=== PATIENT | female | born 1990 | race Caucasian/White ===

== ENCOUNTER 2022-06-27 09:32 | Outpatient (CLI) | payer OTHER | END 2022-06-27 09:58 | disposition home or self-care (01) | LOC: EDBD 09:32 → NST 09:32 | PROVIDERS: ATTEND Obstetrics & Gynecology | DX: Z34.83 Encounter for supervision of other normal pregnancy, third trimester (principal) ==

== ENCOUNTER 2022-07-05 14:45 | Inpatient (IN) | payer OTHER ==
[~2022-07-05] VITALS: Ht 175.3 cm; Wt 99.8 kg
[2022-07-17] MEDS ORDERED: PRENATABS RX T1 EACH PO (10:18)
[2022-07-17] MEDS ORDERED: DOXYLAMINE-PYR1 EACH (13:46)
== END 2022-07-19 14:07 | disposition home or self-care (01) | DRG 807 ==
LOC: LDR 07-17 05:38 → OB/GYN 07-17 14:28 → SURG 07-17 14:45 → OB/GYN 07-19 14:07
PROVIDERS: ADMIT Obstetrics & Gynecology; ATTEND Obstetrics & Gynecology
PROC: 10E0XZZ Delivery of Products of Conception, External Approach (ICD-10-PCS; principal; 2022-07-17)
PROC: 0KQM0ZZ Repair Perineum Muscle, Open Approach (ICD-10-PCS; 2022-07-17)
PROC: 0UQG7ZZ Repair Vagina, Via Natural or Artificial Opening (ICD-10-PCS; 2022-07-17)
PROC: 3E033VJ Introduction of Other Hormone into Peripheral Vein, Percutaneous Approach (ICD-10-PCS; 2022-07-17)
PROC: 4A1HXCZ Monitoring of Products of Conception, Cardiac Rate, External Approach (ICD-10-PCS; 2022-07-17)
DX: O70.1 Second degree perineal laceration during delivery (principal); Z37.0 Single live birth; Z3A.40 40 weeks gestation of pregnancy; Z20.822 Contact with and (suspected) exposure to COVID-19

== ENCOUNTER 2022-07-12 08:44 | Outpatient (CLI) | payer OTHER | END 2022-07-12 09:23 | disposition home or self-care (01) | LOC: NST 08:44 | PROVIDERS: ATTEND Obstetrics & Gynecology Maternal & Fetal Medicine | DX: Z34.83 Encounter for supervision of other normal pregnancy, third trimester (principal) ==